=== PATIENT | male | born 1975 | race Caucasian/White ===

== ENCOUNTER 2018-11-06 19:25 | Emergency (ER) | payer SELFPAY ==
[~2018-11-06] VITALS: Ht 175.3 cm; Wt 68.2 kg
[2018-11-06 19:34] VITALS: Ht 175.3 cm; Wt 68.2 kg
[2018-11-06] MEDS ORDERED: TIROSINT88 MCG PO (19:35)
[2018-11-06] MEDS ORDERED: TORADOL10 MG PO (21:41)
[2018-11-06 21:57] VITALS: BP 136/85
== END 2018-11-06 21:58 | disposition home or self-care (01) ==
LOC: D.ER 19:25
DX: S46.812A Strain of other muscles, fascia and tendons at shoulder and upper arm level, left arm, initial encounter (principal); X50.0XXA Overexertion from strenuous movement or load, initial encounter; Y93.89 Activity, other specified; Y92.89 Other specified places as the place of occurrence of the external cause